=== PATIENT | male | born 1960 | race Caucasian/White ===

== ENCOUNTER 2018-12-09 02:07 | Inpatient (IN) | payer MEDICAID ==
[2018-12-09] VITALS (12 sets, daily range): BP systolic 110–189; BP diastolic 53–98
[~2018-12-09] VITALS: Ht 172.7 cm; Wt 79.6 kg
--- NOTE | ~2018-12-09 | EKG ---
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
--- NOTE | ~2018-12-09 | O ---
[place], [place] OPERATIVE NOTE NAME: DORIS IVORY [facility] #: [id number] UNIT #: [id number] ROOM: 404 DOCTOR: JACIEL HALL DO BIRTHDATE: [birth year] DOS: 12/09/2018 PREOPERATIVE DIAGNOSIS: Right ring finger abscess, flexor tenosynovitis. POSTOPERATIVE DIAGNOSIS: Right ring finger abscess, flexor tenosynovitis. OPERATIVE PROCEDURE: Incision and drainage of right ring finger abscess and flexor tenosynovitis. SURGEON: Jaciel Hall DO. PROFESSOR OF ART: Dr. Nuñez. ANESTHESIA: Stanley, CERTIFIED DIETARY MANAGER, general LMA intubation. INDICATIONS: The patient is a 58-year-old male who has had increasing pain and swelling in the right ring finger volar surface over the past 3-5 days. He is unsure of trauma to the digit, but thought he might have a splinter or insect bite or spider bite as the finger became swollen and tender. He did try to explore a small pustule using a pin at home. He denies any fevers or chills. He has a fluctuant proximal phalanx of the right ring finger volar surface with pain into the palm and red streaking up the forearm. The risks and benefits of the procedure were explained to the patient and his punch box tender preoperatively. DESCRIPTION OF PROCEDURE: The right ring finger was marked in the holding room. The patient was brought to the operative suite. A timeout was performed. A general anesthetic with LMA intubation was performed. The patient received clindamycin 900 mg IV, preoperatively. Tourniquet was applied to the right upper arm. The right hand was scrubbed and prepped and draped in the usual orthopedic fashion. The incision was marked along the volar surface of the right ring finger in a Kerwin type fashion. The extremity was elevated. The tourniquet was inflated to 250 mmHg. Under loupe magnification, the incision was made from the proximal interphalangeal joint to the base of the proximal phalanx sharply. Subcutaneous tissue was spread down to the level of the flexor tendons. There was noted to be a purulent green substance. There was also some black necrotic tissue. There was no evidence of foreign body. Cultures were obtained. The area was debrided using a rongeur. The area was copiously irrigated with normal saline. The flexor retinaculum was evaluated. There was noted to be a small rent in the retinaculum. This was explored. There was no gross purulence within the flexor retinaculum. The area was copiously irrigated with normal saline using an IV catheter and 2 liters of normal saline. No further purulence was noted. The wound was loosely closed proximally, but left open at the level of most significant purulence. A light quarter inch iodoform packing was placed. The wound was covered with Xeroform, 4 x 4s, and Yuni. The tourniquet was released. Dressing was completed with a bulky 4 x 4s, and Coban. The anesthetic was reversed. The patient was extubated and taken to recovery room in satisfactory condition. Sponge and needle count correct. [place], [place] OPERATIVE NOTE NAME: DORIS IVORY UNIT #: [id number] ROOM: [facility] DOCTOR: JACIEL HALL DO BIRTHDATE: [birth year] ESTIMATED BLOOD LOSS: None. SPECIMENS: Gram stain, culture and sensitivity, fungal and AFB cultures. DRAINS: None. PACKING: Light 1/4 inch iodoform gauze. FINDINGS: Purulence and abscess, right ring finger, proximal phalanx volar. The infection did not appear to enter the flexor tendon sheath, although there was a small rent in the sheath noted. JACIEL HALL DO CM:OPRECORD:OPERATIVE NOTE 26 [id number] JACIEL HALL DO 12/09/[id number] interface
--- NOTE | ~2018-12-09 | EKG ---
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
[2018-12-09 02:42] LABS: BASO % 0.5 % (0.0-1.0); EOS # 0.1 10*3/uL (0.0-0.4); EOS % 0.7 % (1.0-4.0); HEMATOCRIT 42.9 % (42.0-52.0); HEMOGLOBIN 14.5 g/dl (14.0-18.0); LYMPH # 1.6 10*3/uL (1.3-4.4); LYMPH % 17.9 % (27.0-41.0); MEAN CELL VOLUME 93.1 fl (80.0-94.0); MEAN CORPUSCULAR HGB 31.5 pg (27.0-31.0); MEAN CORPUSCULAR HGB CONC 33.8 g/dl (33.0-37.0); MEAN PLATELET VOLUME 10.5 fl (9.6-12.3); MONO # 0.5 10*3/uL (0.1-1.0); MONO % 5.8 % (3.0-9.0); NEUT # 6.6 10*3/uL (2.3-7.9); NEUT % 74.8 % (47.0-73.0); PLATELET COUNT AUTOMATED 251 10*3/uL (130-400); RED BLOOD COUNT 4.61 10*6/uL (4.50-5.90); RED CELL DISTRI WIDTH 12.5 % (0-14.5); WHITE BLOOD COUNT 8.9 10*3/uL (4.8-10.8)
[2018-12-09 02:58] LABS: ALBUMIN 4.3 gm/dl (3.1-4.5); ALKALINE PHOSPHATASE 92 U/L (45-117); BUN 10 mg/dl (7-24); CHLORIDE 104 mmol/L (98-107); CREATININE 0.82 mg/dL (0.70-1.30); POTASSIUM 3.8 mmol/L (3.5-5.1); SGOT/AST 28 IU/L (3-35); SGPT/ALT 35 U/L (12-78); SODIUM 137 mmol/L (136-145); TOTAL PROTEIN 7.9 gm/dL (6.4-8.2)
[2018-12-10] VITALS: BP 109/56
[2018-12-10 06:14] LABS: BASO % 0.3 % (0.0-1.0); EOS # 0.1 10*3/uL (0.0-0.4); EOS % 1.7 % (1.0-4.0); HEMATOCRIT 36.3 % (42.0-52.0); HEMOGLOBIN 12.1 g/dl (14.0-18.0); LYMPH # 1.4 10*3/uL (1.3-4.4); LYMPH % 24.6 % (27.0-41.0); MEAN CELL VOLUME 92.6 fl (80.0-94.0); MEAN CORPUSCULAR HGB 30.9 pg (27.0-31.0); MEAN CORPUSCULAR HGB CONC 33.3 g/dl (33.0-37.0); MEAN PLATELET VOLUME 10.8 fl (9.6-12.3); MONO # 0.5 10*3/uL (0.1-1.0); MONO % 8.1 % (3.0-9.0); NEUT # 3.8 10*3/uL (2.3-7.9); PLATELET COUNT AUTOMATED 189 10*3/uL (130-400); RED BLOOD COUNT 3.92 10*6/uL (4.50-5.90); RED CELL DISTRI WIDTH 12.7 % (0-14.5); WHITE BLOOD COUNT 5.8 10*3/uL (4.8-10.8)
[2018-12-10 06:39] LABS: ALBUMIN 3.1 gm/dl (3.1-4.5); ALKALINE PHOSPHATASE 70 U/L (45-117); BUN 11 mg/dl (7-24); CHLORIDE 105 mmol/L (98-107); CHOLESTEROL 175 mg/dL (<200); CREATININE 0.74 mg/dL (0.70-1.30); FREE T4 1.45 ng/dl (0.76-1.46); HDL CHOLESTEROL 35 mg/dl (40-60); LDL CHOLESTEROL 122 mg/dL (9-159); PHOSPHOROUS 2.6 mg/dL (2.5-4.9); POTASSIUM 3.4 mmol/L (3.5-5.1); SGOT/AST 15 IU/L (3-35); SGPT/ALT 21 U/L (12-78); SODIUM 137 mmol/L (136-145); TRIGLYCERIDES 92 mg/dl (<150); VLDL CHOLESTEROL 18 mg/dL (6-40)
[2018-12-10 06:44] LABS: THYROID STIM HORMONE (HS) 0.956 uIU/ml (0.358-4.75)
[2018-12-10 06:57] LABS: ACT PARTIAL THROMBO TIME 27.5 SECONDS (20.0-32.1); INTERNATIONAL NORM RATIO 0.9 (2.0-3.5)
[2018-12-10 07:30] LABS: VITAMIN D, 25-HYDROXY 18.1 ng/mL (30-100)
[2018-12-10 08:00] VITALS: BP 100/52
[2018-12-10 12:00] VITALS: BP 124/64
[2018-12-10 14:06] LABS: ACID FAST SPEC PROCESSING Tissue Grinding (.)
[2018-12-10 16:00] VITALS: BP 117/55
[2018-12-10 20:00] VITALS: BP 128/64
[2018-12-11] VITALS: BP 146/65
[2018-12-11 05:45] LABS: BUN 9 mg/dl (7-24); CHLORIDE 106 mmol/L (98-107); CREATININE 0.68 mg/dL (0.70-1.30); POTASSIUM 3.8 mmol/L (3.5-5.1); SODIUM 140 mmol/L (136-145)
[2018-12-11 05:58] LABS: BASO % 0.8 % (0.0-1.0); EOS # 0.2 10*3/uL (0.0-0.4); EOS % 5.2 % (1.0-4.0); HEMATOCRIT 37.8 % (42.0-52.0); HEMOGLOBIN 12.8 g/dl (14.0-18.0); LYMPH # 1.4 10*3/uL (1.3-4.4); LYMPH % 35.8 % (27.0-41.0); MEAN CELL VOLUME 92.2 fl (80.0-94.0); MEAN CORPUSCULAR HGB 31.2 pg (27.0-31.0); MEAN CORPUSCULAR HGB CONC 33.9 g/dl (33.0-37.0); MEAN PLATELET VOLUME 11.3 fl (9.6-12.3); MONO # 0.4 10*3/uL (0.1-1.0); MONO % 10.1 % (3.0-9.0); NEUT # 1.8 10*3/uL (2.3-7.9); NEUT % 47.6 % (47.0-73.0); PLATELET COUNT AUTOMATED 209 10*3/uL (130-400); RED CELL DISTRI WIDTH 12.5 % (0-14.5); WHITE BLOOD COUNT 3.9 10*3/uL (4.8-10.8)
[2018-12-11 08:00] VITALS: BP 140/56
[2018-12-11 12:00] VITALS: BP 145/67
[2018-12-11 16:00] VITALS: BP 128/67
[2018-12-11 20:00] VITALS: BP 149/78
[2018-12-12] VITALS: BP 139/80
[2018-12-12 07:16] LABS: BASO % 0.6 % (0.0-1.0); EOS # 0.3 10*3/uL (0.0-0.4); EOS % 4.6 % (1.0-4.0); HEMATOCRIT 42.4 % (42.0-52.0); HEMOGLOBIN 14.3 g/dl (14.0-18.0); LYMPH # 1.4 10*3/uL (1.3-4.4); MEAN CELL VOLUME 91.4 fl (80.0-94.0); MEAN CORPUSCULAR HGB 30.8 pg (27.0-31.0); MEAN CORPUSCULAR HGB CONC 33.7 g/dl (33.0-37.0); MEAN PLATELET VOLUME 11.1 fl (9.6-12.3); MONO # 0.5 10*3/uL (0.1-1.0); MONO % 8.5 % (3.0-9.0); NEUT # 3.3 10*3/uL (2.3-7.9); NEUT % 60.6 % (47.0-73.0); PLATELET COUNT AUTOMATED 256 10*3/uL (130-400); RED BLOOD COUNT 4.64 10*6/uL (4.50-5.90); RED CELL DISTRI WIDTH 12.5 % (0-14.5); WHITE BLOOD COUNT 5.4 10*3/uL (4.8-10.8)
[2018-12-12 08:00] VITALS: BP 136/74
[2018-12-12 12:00] VITALS: BP 140/66
[2018-12-12] MEDS ORDERED: DOXYCYCLINE100 M3 PO (13:21)
[2018-12-12] MEDS ORDERED: VITAMIN D32000 UNI1 PO (13:23)
[2018-12-12] MEDS ORDERED: PHARMASSURE V500 MCG PO (13:23)
[2019-01-19 10:07] LABS: ACID FAST CULTURE Negative (.)
== END 2018-12-12 13:58 | disposition home or self-care (01) | DRG 513 ==
LOC: ED 02:07 → 4E 09:15 → EDHOLD 09:15 → 4E 09:35
PROVIDERS: Emergency Medicine; Internal Medicine; Orthopaedic Surgery; ADMIT Internal Medicine
PROC: 0L970ZZ Drainage of Right Hand Tendon, Open Approach (ICD-10-PCS; principal; 2018-12-09)
DX: M65.841 Other synovitis and tenosynovitis, right hand (principal); L02.511 Cutaneous abscess of right hand; E87.6 Hypokalemia; D64.9 Anemia, unspecified; E53.8 Deficiency of other specified B group vitamins; B95.62 Methicillin resistant Staphylococcus aureus infection as the cause of diseases classified elsewhere; E55.9 Vitamin D deficiency, unspecified; D72.819 Decreased white blood cell count, unspecified; R00.1 Bradycardia, unspecified; R03.0 Elevated blood-pressure reading, without diagnosis of hypertension; D72.9 Disorder of white blood cells, unspecified; D72.810 Lymphocytopenia; F17.210 Nicotine dependence, cigarettes, uncomplicated; Z71.6 Tobacco abuse counseling; Z88.0 Allergy status to penicillin; Z83.3 Family history of diabetes mellitus; Z84.89 Family history of other specified conditions